=== PATIENT | male | born 1980 | race Hispanic/Latino ===

== ENCOUNTER 2022-04-07 16:35 | Emergency (ER) | payer MEDICARE ==
[~2022-04-07] VITALS: Ht 162.6 cm; Wt 59.0 kg
[2022-04-07 17:49] LABS: BASOPHILS % (AUTO) 0.3 % (0.0-5.0); EOSINOPHILS % (AUTO) 1.9 % (0.0-8.0); HEMATOCRIT 50.2 % (42-54); LYMPHOCYTES % (AUTO) 17.6 % (21.0-51.0); MEAN CORPUSCULAR HEMOGLOBIN 29.2 pg (27.0-33.0); MEAN CORPUSCULAR HGB CONC 34.5 g/dL (32.0-36.0); MEAN CORPUSCULAR VOLUME 84.7 fL (79-99); MONOCYTES % (AUTO) 4.6 % (3.0-13.0); NEUTROPHILS % (AUTO) 75.4 % (40.0-77.0); PLATELET COUNT (AUTO) 275 K/uL (130-400); RED BLOOD CELL COUNT(AUTO) 5.93 MIL/uL (4.50-6.20); RED CELL DISTRIBUTION WIDTH 12.4 % (11.0-15.5); WHITE BLOOD COUNT (AUTO) 8.9 K/uL (4.8-10.8)
[2022-04-07 17:58] LABS: CREATININE 0.7 mg/dL (0.5-1.5); POTASSIUM 4.5 mmol/L (3.5-5.1)
[2022-04-07 18:03] LABS: ALBUMIN 4.1 g/dL (3.5-5.0)
[2022-04-07] MEDS ORDERED: KETOROLAC 30MG VIAL (30MG/ML) IVP ONE (20:00)
[2022-04-07] MEDS ORDERED: TAMSULOSIN HCL 0.4 MG CAP.ER.24H PO SCH (20:00)
[2022-04-07] MEDS ORDERED: ONDANSETRON 4MG INJ IVP ONE (20:00)
[2022-04-07] MEDS ORDERED: 0.9%NACL 1000ML 1,000 ML IV ONE (20:00)
[2022-04-07] MEDS ORDERED: TAMS-1 PO (21:17)
[2022-04-07] MEDS ORDERED: ONDA-104 PO (21:17)
[2022-04-07] MEDS ORDERED: IBUP-1493 PO (21:17)
[2022-04-07 21:47] VITALS: BP 131/88
== END 2022-04-07 21:57 | disposition home or self-care (01) ==
LOC: EDH 16:35
DX: R10.9 Unspecified abdominal pain (principal); R32 Unspecified urinary incontinence; G80.8 Other cerebral palsy; Z87.442 Personal history of urinary calculi
CPT/HCPCS: 36415; 74176; 80053; 85025

== ENCOUNTER 2024-11-17 13:29 | Emergency (ER) | payer OTHER, MEDICAID ==
[~2024-11-17] VITALS: Ht 139.7 cm; Wt 59.0 kg
[~2024-11-17 13:29] MED LIST: IBUP-1493 PO; ONDA-104 PO; TAMS-55 PO
[2024-11-17] MEDS: 0.9%NACL 1000ML 1,000 ML IV ONE (14:58)
[2024-11-17 15:11] LABS: APPEARANCE,URINE CLOUDY (CLEAR); GLUCOSE, URINE (UA) NEGATIVE (NEGATIVE); LEUKOCYTE ESTERASE ,URINE 25 Leu/uL (NEGATIVE); NITRATE,URINE NEGATIVE (NEGATIVE); OCCULT BLOOD,URINE LARGE (NEGATIVE)
[2024-11-17 15:32] LABS: IMMATURE GRANULOCYTE ABSOLUTE 0.01 K/uL (0-1); NUCLEATED RED BLOOD CELLS 0.0 % (0.0-0.19); PLATELET COUNT (AUTO) 205 K/uL (130-400); RED BLOOD CELL COUNT(AUTO) 4.94 MIL/uL (4.50-6.20); RED CELL DISTRIBUTION WIDTH 12.7 % (11.0-15.5); WHITE BLOOD COUNT (AUTO) 5.5 K/uL (4.8-10.8)
[2024-11-17 15:40] LABS: CREATININE 0.5 mg/dL (0.5-1.3); GLOMERULAR FILTR. RATE CALC 130.0 mL/min (>90); GLUCOSE,RANDOM 95.0 mg/dL (70-105); SODIUM SERUM 137.0 mmol/L (136-145); UREA NITROGEN, BLOOD 9.0 mg/dL (7-18)
[2024-11-17 15:42] LABS: INR 1.01 (0.85-1.15)
[2024-11-17 15:45] LABS: ADD UA MICROSCOPIC YES
[2024-11-17 15:48] LABS: UNCLASSIFIED CRYSTAL 4 /HPF (None Seen)
--- NOTE | 2024-11-17 17:30 | HMCIMG ---
EXAM: US Retroperitoneum, Renal. CLINICAL HISTORY: hematuria TECHNIQUE: Real-time ultrasound of the retroperitoneum with image documentation. COMPARISON: None provided. FINDINGS: RIGHT KIDNEY: Right kidney is unremarkable except for a 1 cm nonobstructive calculus at the interpolar region. LEFT KIDNEY: Mild hydroureteronephrosis of the left kidney is noted. Multiple stones are identified within the renal parenchyma measuring up to 2.[address] examination recommended for further evaluation. BLADDER: Unremarkable as visualized. MISCELLANEOUS: No other significant abnormality evident. IMPRESSION: 1. Left kidney mild hydroureteronephrosis.Multiple left renal parenchymal stones noted measuring up to 2.5 cm. 2. Right kidney 1 cm nonobstructive calculus at the interpolar region. 3. CT examination recommended for further evaluation. /Campbell
[2024-11-17] MEDS ORDERED: TAMS-55 PO (17:55)
[2024-11-17] MEDS ORDERED: KETO10TA2 PO (17:55)
--- NOTE | 2024-11-17 17:56 | ERN ---
General Chief Complaint: Blood in Urine: Stated Complaint: BLOOD IN THE URINE Time Seen by MD: 13:31 Time Seen by Midlevel: 13:31 Source: patient, family (mom) History of Present Illness Initial Comments 44-year-old male with a past history of cerebral palsy being brought in by mom for evaluation of hematuria that started last night and worsened today. Patient has a history of kidney stones. No pain is reported. No fever, chills, or any other symptoms reported Allergies: Coded Allergies: No Known Allergies (Unverified Allergy, Unknown, 04/07/22) Home Meds Active Scripts Ketorolac Tromethamine (Ketorolac Tromethamine) 10 Mg Tablet, 1 TAB PO BID for pain for 5 Days, #10 TAB 0 Refills Prov:AFTAB NEVES 11/17/24 Tamsulosin HCl (Flomax) 0.4 Mg Cap.er.24h, 1 CAP PO DAILY for 30 Days, #30 CAP 0 Refills Prov:AFTAB NEVES 11/17/24 Ondansetron HCl (Ondansetron HCl) 4 Mg Tablet, 4 MG PO TIDP PRN for VOMITING, #20 TAB Prov:SADI BLACK MD 04/07/22 Ibuprofen (Motrin/Advil) 800 Mg Tab, 800 MG PO TID, #30 TAB Prov:SADI BLACK MD 04/07/22 Tamsulosin HCl (Flomax) 0.4 Mg Cap.er.24h, 0.4 MG PO DAILY, #10 CAPSULE.DR Prov:SADI BLACK MD 04/07/22 Past Medical History Past Medical History: Other Medical History Other: CEREBRAL PALSY, INCONTINENCE Past Surgical History: None Social History Social History: Lives with family ROS Dictation CONSTITUTIONAL: Negative except for HPI HEAD/FACE: Negative except for HPI EENT: Negative except for HPI RESPIRATORY: Negative except for HPI GASTROINTESTINAL/ABDOMINAL: Negative except for HPI GENITOURINARY: Negative except for HPI MUSCULOSKELETAL: Negative except for HPI INTEGUMENTARY: Negative except for HPI NEUROLOGICAL/PSYCH: Negative except for HPI HEMATOLOGIC/LYMPHATIC: Negative except for HPI All Systems Negative, Except as noted above. 13 point review of systems assessed and all negative except for above. Physical Exam Physical Exam Dictation PHYSICAL EXAM: GENERAL: alert,, awake oriented x 3 HEENT: EOMI, Sclera non icteric, moist mucosa NECK: Supple, no JVD, trachea midline LUNGS: Clear breath sounds bilaterally. No wheezes HEART: Regular rate and rhythm. Normal S1 and S2, without murmurs ABD: Abdomen soft, nontender. Bowel sounds present EXT: No clubbing or cyanosis, NEURO: Alert and oriented to person, follows commands Results Laboratory and Microbiology Lab and Micro Result Laboratory Tests Test 11/17/24 15:04 11/17/24 15:25 Urine Color LIGHT-ORANGE (YELLOW) Urine Appearance CLOUDY (CLEAR) H Urine pH 6.0 (5.0-8.0) Urine Specific Stanton 1.014 (1.001-1.031) Urine Protein 20 mg/dL (NEGATIVE) H Urine Glucose (UA) NEGATIVE mg/dL (NEGATIVE) Urine Ketones 5 mg/dL (NEGATIVE) H Urine Occult Blood LARGE (NEGATIVE) H Urine Nitrate NEGATIVE (NEGATIVE) Urine Bilirubin NEGATIVE mg/dL (NEGATIVE) Urine Urobilinogen 0.2 mg/dL (0.2-1.0) Urine Leukocyte Esterase 25 Marisa/uL (NEGATIVE) H Urine RBC TNTC /HPF (0-1) H Urine WBC 2-5 /HPF (0-1) H Urine Other Crystals (Auto) 4 /HPF (None Seen) Urine Bacteria None /HPF (None Seen) White Blood Count 5.5 K/uL (4.8-10.8) Red Blood Count 4.94 MIL/uL (4.50-6.20) Hemoglobin 14.6 g/dL (14.0-18.0) Hematocrit 41.3 % (42-54) L Mean Corpuscular Volume 83.6 fL (79-99) Mean Corpuscular Hemoglobin 29.6 pg (27.0-33.0) Mean Corpuscular Hemoglobin Concent 35.4 g/dL (32.0-36.0) Red Cell Distribution Width 12.7 % (11.0-15.5) Platelet Count 205 K/uL (130-400) Mean Platelet Volume 9.8 fL (7.5-10.5) Immature Granulocyte % (Auto) 0.2 % (0-1) Neutrophils (%) (Auto) 71.6 % (40.0-77.0) Lymphocytes (%) (Auto) 20.7 % (21.0-51.0) L Monocytes (%) (Auto) 5.7 % (3.0-13.0) Eosinophils (%) (Auto) 1.3 % (0.0-8.0) Basophils (%) (Auto) 0.5 % (0.0-5.0) Neutrophils # (Auto) 3.9 K/uL (1.8-7.7) Lymphocytes # (Auto) 1.1 K/uL (1.0-4.8) Monocytes # (Auto) 0.3 K/uL (0.1-1.0) Eosinophils # (Auto) 0.07 K/uL (0.00-0.70) Basophils # (Auto) 0.03 K/uL (0.00-0.20) Absolute Immature Granulocyte (auto 0.01 K/uL (0-1) Nucleated Red Blood Cells 0.0 % (0.0-0.19) Prothrombin Time 10.7 SEC (9.6-11.6) Prothromb Time International Ratio 1.01 (0.85-1.15) Activated Partial Thromboplast Time 31.0 SEC (26.3-35.5) Sodium Level 137 mmol/L (136-145) Potassium Level 3.5 mmol/L (3.5-5.1) Chloride Level 101 mmol/L (101-111) Carbon Dioxide Level 28 mmol/L (21-32) Blood Urea Nitrogen 9 mg/dL (7-18) Creatinine 0.5 mg/dL (0.5-1.3) Glomerular Filtration Rate Calc 130 mL/min (>90) Random Glucose 95 mg/dL (70-105) Total Calcium 8.3 mg/dL (8.5-10.1) L Labs Reviewed?: Yes MDM MDM: Differential diagnosis: Ureter stone, urinary tract infection, pyelonephritis There are no social concerns with this patient. Prescription drug management Prescriptions will include: Toradol, tamsulosin Medical management and examination interpretation discussions were had by me with other qualified healthcare professionals as indicated for the patient's care. ED Course Orders Procedure Category Date Status Time Urinalysis Profile LAB 11/17/24 Complete 13:35 0.9%Nacl 1000ml (Ns PHA 11/17/24 Complete 1000ml) 15:00 Cbc With Differential LAB 11/17/24 Complete 15:14 Basic Metabolic Panel LAB 11/17/24 Complete 15:14 Pt And Ptt LAB 11/17/24 Complete 15:14 Us Renal Sonogram US 11/17/24 Resulted 15:52 Current Medications Medications (Trade) Dose Ordered Sig/Mark Route PRN Reason Start Time Stop Time Status Last Admin Dose Admin Sodium Chloride 1,000 ml @ 0 mls/hr ONCE ONCE IV 11/17/24 15:00 11/17/24 15:01 DC 11/17/24 14:58 Vital Signs Date Time Temp Pulse Resp B/P (MAP) Pulse Ox O2 Delivery O2 Flow Rate FiO2 11/17/24 14:11 98.2 65 16 115/70 98 Room Air* 0 21 11/17/24 13:30 97.5 67 20 116/72 99 Room Air [facility] [address] [place] [id number] IMAGING REPORT Signed PATIENT: RENZO COOK MR#: [id number] : 1980 SEX: M AGE: 44 LOCATION: [facility] ORDER 53 STATUS: REG ER REPORT#: [id number] SERVICE [id number] REASON: hematuria ORDERING PHYSICIAN: AFTAB NEVES PROCEDURE: RENAL - US RENAL SONOGRAM EXAM: US Retroperitoneum, Renal. CLINICAL HISTORY: hematuria TECHNIQUE: Real-time ultrasound of the retroperitoneum with image documentation. COMPARISON: None provided. FINDINGS: RIGHT KIDNEY: Right kidney is unremarkable except for a 1 cm nonobstructive calculus at the interpolar region. LEFT KIDNEY: Mild hydroureteronephrosis of the left kidney is noted. Multiple stones are identified within the renal parenchyma measuring up to 2.[address] examination recommended for further evaluation. BLADDER: Unremarkable as visualized. MISCELLANEOUS: No other significant abnormality evident. IMPRESSION: 1. Left kidney mild hydroureteronephrosis.Multiple left renal parenchymal stones noted measuring up to 2.5 cm. 2. Right kidney 1 cm nonobstructive calculus at the interpolar region. 3. CT examination recommended for further evaluation. /Ragan DICTATED BY: ZHAO GANDHI MD DATE: 11/17/241828 ELECTRONICALLY SIGNED BY: ZHAO GANDHI MD DATE: 11/17/241828 DX & DISP Disposition: Discharge Departure Impression: Primary Impression: Kidney stone Condition: Stable Scripts Ketorolac Tromethamine (Ketorolac Tromethamine) 10 Mg Tablet 1 TAB PO BID for pain for 5 Days, #10 TAB 0 Refills Prov: AFTAB NEVES 11/17/24 Tamsulosin HCl (Flomax) 0.4 Mg Cap.er.24h 1 CAP PO DAILY for 30 Days, #30 CAP 0 Refills Prov: AFTAB NEVES 11/17/24 Additional Instructions: Your blood work today showed a normal white blood cell count. No evidence of anemia noted in blood work. Ultrasound reveals bilateral kidney stones. I will go ahead and prescribed tamsulosin and Toradol for pain. You will need to see a urologist for further evaluation. Referrals: BRYAN FLOWERS MD (PCP) FAUSTINO CORRIGAN MD, KENNETH A MD Time of Disposition: 17:52 I have reviewed the case, and I agree with, Diagnosis and Plan I performed the substantive portion of the visit. I have reviewed and personally made and approve the management plan that is documented in the note by myself or the MELISSA. I acknowledge for responsibility for the patient's management plan. AFTAB NEVES Nov 17, 2024 17:56
[2024-11-17 18:26] VITALS: BP 115/70; PULSE 65; RESP 16; TEMP 98.3; O2SAT 98
== END 2024-11-17 18:31 | disposition home or self-care (01) ==
LOC: EDH 13:29
DX: N13.2 Hydronephrosis with renal and ureteral calculous obstruction (principal); Z79.1 Long term (current) use of non-steroidal anti-inflammatories (NSAID); Z79.899 Other long term (current) drug therapy
CPT/HCPCS: 99284; 96360; 76770; 80048; 85025; 85610; 85730; 81001; 36415; J7030